=== PATIENT | male | born 1995 | race Caucasian/White ===

== ENCOUNTER 2016-12-30 11:47 | Emergency (ER) | payer SELFPAY ==
[~2016-12-30] VITALS: Ht 185.4 cm; Wt 62.2 kg
[2016-12-30 12:03] VITALS: BP 127/80
== END 2016-12-30 12:51 | disposition home or self-care (01) ==
LOC: ED 12:30
DX: K02.9 Dental caries, unspecified (principal)
CPT/HCPCS: 99283

== ENCOUNTER 2017-02-15 12:35 | Emergency (ER) | payer MEDICAID ==
[~2017-02-15] VITALS: Ht 190.5 cm; Wt 57.7 kg
[~2017-02-15 12:35] MED LIST: CLON0.5T PO
[2017-02-15 12:50] VITALS: BP 127/83
== END 2017-02-15 13:54 | disposition home or self-care (01) ==
LOC: ED 13:30
DX: L03.116 Cellulitis of left lower limb (principal)
CPT/HCPCS: 99283

== ENCOUNTER 2017-02-25 17:58 | Observation (INO) | payer MEDICAID ==
[~2017-02-25] VITALS: Ht 190.5 cm; Wt 57.7 kg
[2017-02-25] MEDS ORDERED: CITA10TA8 PO (18:35)
[2017-02-25 18:46] LABS: HEMATOCRIT 43.5 % (39.2-51.8); HEMOGLOBIN 14.9 g/dL (13.7-18.0); WHITE BLOOD COUNT 6.1 x10^3/uL (3.4-10)
[2017-02-25 18:56] LABS: ACETAMINOPHEN < 2 mcg/mL (10-30); BLOOD UREA NITROGEN 18 mg/dL (7-18)
[2017-02-25 19:36] LABS: DAU SCREEN DISCLAIMER
[2017-02-25] MEDS ORDERED: POLYETHYLENE GLYCOL 17 GM PACKET PO PRN (20:30)
[2017-02-25] MEDS ORDERED: NICOTINE 14MG/24 HR PATCH.TD24 TD SCH (20:30)
[2017-02-25] MEDS ORDERED: ONDANSETRON ODT 4 MG PO PRN (20:30)
[2017-02-25] MEDS ORDERED: ACETAMINOPHEN 325 MG TABLET PO PRN (20:30)
[2017-02-25] MEDS ORDERED: BISACODYL 10 MG SUPP PR PRN (20:30)
[2017-02-26] MEDS ORDERED: BACITRACIN ZINC OINT 500U/GM, 0.9 GM ONE (01:23)
[2017-02-26] MEDS ORDERED: NICOTINE 14MG/24 HR PATCH.TD24 ONE (01:23)
[2017-02-26] MEDS: BACITRACIN/POLYMIXIN B SULFATE OINT 14 GM TP SCH ×2 (01:28→09:00)
[2017-02-26 05:47] VITALS: BP 111/73
[2017-02-26] MEDS ORDERED: SENNA/DOCUSATE TABLET PO SCH (09:00)
[2017-02-26] MEDS ORDERED: CITALOPRAM 10 MG TABLET PO SCH (09:00)
[2017-02-26] MEDS ORDERED: AMOX1TAB64 BC (17:19)
[2017-02-26] MEDS ORDERED: AMOXICILLIN/CLAV 875-125MG TABLET PO SCH (21:00)
== END 2017-02-26 15:27 ==
LOC: ED 20:06 → EDIP 20:10 → 3E 02-26 08:50
PROVIDERS: ADMIT Hospitalist; ATTEND Hospitalist
DX: R45.851 Suicidal ideations (principal); N50.89 Other specified disorders of the male genital organs; F32.9 Major depressive disorder, single episode, unspecified; F15.10 Other stimulant abuse, uncomplicated; F12.10 Cannabis abuse, uncomplicated; Z72.0 Tobacco use; S30.813A Abrasion of scrotum and testes, initial encounter; X58.XXXA Exposure to other specified factors, initial encounter; Y93.89 Activity, other specified; Y92.89 Other specified places as the place of occurrence of the external cause; Y99.8 Other external cause status
CPT/HCPCS: 36415; 76870; 80048; 80307; 80329; 82040; 85025; 93975; 99285; G0378; G0479; G0480